=== PATIENT | female | born 1990 | race Caucasian/White ===

== ENCOUNTER 2017-02-26 14:31 | Emergency (ER) | payer BC ==
[2017-02-26 14:59] VITALS: BP 108/65
--- NOTE | 2017-02-26 15:19 | UC ---
Complaint Female HPI - HPI Summary HPI Summary: 26 yo female with dysuria/urgency and frequency x 1 day no f/c no n/v/d no abd or back pain no vag d/c or itch - History Of Current Complaint Chief Complaint: UCGU Stated Complaint: URINARY COMPLAINT Time Seen by Provider: 02/26/17 15:09 Hx Obtained From: Patient Hx Last Menstrual Period: 02/18/17 Onset/Duration: Gradual Onset, Lasting Hours Timing: Intermittent, Lasting Seconds Severity Initially: Mild Severity Currently: None Pain Intensity: 0 - only hurts with urination Pain Scale Used: 0-10 Numeric Character: Burning Aggravating Factor(s): Urination Associated Signs And Symptoms: Positive: Negative Related Hx: Similar Episode/Dx as: - uti - Allergies/Home Medications Allergies/Adverse Reactions: Allergies Allergy/AdvReac Type Severity Reaction Status Date / Time No Known Allergies Allergy Verified 02/26/17 15:00 PMH/Surg Hx/FS Hx/Imm Hx Previously Healthy: Yes - Surgical History Surgical History: Yes Surgery Procedure, Year, and Place: wisdom teeth. . appy - Family History Known Family History: Positive: Hypertension - Social History Alcohol Use: Rare Substance Use Type: None Smoking Status (MU): Never Smoked Tobacco Review of Systems Constitutional: Negative Skin: Negative Eyes: Negative ENT: Negative Respiratory: Negative Cardiovascular: Negative Gastrointestinal: Negative Genitourinary: Dysuria, Frequency, Urgency Motor: Negative Neurovascular: Negative Musculoskeletal: Negative Neurological: Negative Psychological: Negative All Other Systems Reviewed And Are Negative: Yes Physical Exam Triage Information Reviewed: Yes Appearance: Well-Appearing, No Pain Distress, Well-Nourished Vital Signs: Initial Vital Signs Temp 98.6 F 02/26/17 14:56 Pulse 79 02/26/17 14:56 Resp 16 02/26/17 14:56 BP 108/65 02/26/17 14:56 Pulse Ox 100 02/26/17 14:56 Vital Signs Reviewed: Yes Eyes: Positive: Conjunctiva Clear ENT: Positive: Hearing grossly normal. Negative: Pharyngeal erythema, Nasal congestion, Nasal drainage, Trismus, Muffled/hoarse voice Neck: Positive: Supple, Nontender, No Lymphadenopathy Respiratory: Positive: Lungs clear, Normal breath sounds, No respiratory distress, No accessory muscle use Cardiovascular: Positive: RRR, No Murmur Abdomen Description: Positive: Nontender, No Organomegaly, Soft. Negative: CVA Tenderness (R), CVA Tenderness (L) Musculoskeletal: Positive: ROM Intact, No Edema Neurological: Positive: Alert Psychological Exam: Normal Skin Exam: Normal Complaint Female Dx - Differential Dx/Diagnosis Provider Diagnoses: acute cystitis Discharge - Discharge Plan Condition: Stable Disposition: HOME Prescriptions: Cephalexin CAP* [Keflex CAP*] 500 mg PO BID #14 cap Phenazopyridine TAB* [Pyridium TAB*] 100 mg PO TID #6 tab Patient Education Materials: Urinary Tract Infection in Women (ED) Referrals: RASHAAD Almodovar [Primary Care Provider] - 3 Days (if not better) Additional Instructions: urine culture pending recheck for new or worsening symptoms
--- NOTE | 2017-03-02 08:24 | UC ---
Progress - Progress Note Progress Note: + UC, sensitive to the keflex she is on. complete abx and f/u with pcp
== END 2017-02-26 15:20 | disposition home or self-care (01) ==
LOC: UCCORT 14:31
DX: N30.00 Acute cystitis without hematuria (principal); B96.20 Unspecified Escherichia coli [E. coli] as the cause of diseases classified elsewhere
CPT/HCPCS: 81003; 87077; 87086; 87186; 99212; G0463

== ENCOUNTER 2017-04-19 09:31 | Emergency (ER) | payer BC ==
[2017-04-19 09:58] VITALS: BP 100/66
--- NOTE | 2017-04-19 10:09 | UC ---
Throat Pain/Nasal Asher HPI - HPI Summary HPI Summary: SINCE YESTERDAY SORE THROAT CHILLS BODY ACHE. NO FEVER. NO ABDOMINAL PAIN. - History of Current Complaint Chief Complaint: UCGeneralIllness Stated Complaint: THROAT Time Seen by Provider: 04/19/17 09:33 Hx Obtained From: Patient Hx Last Menstrual Period: 04/01/17 Onset/Duration: Gradual Onset, Lasting Days, Still Present Severity: Mild Cough: None Associated Signs & Symptoms: Positive: Dysphagia, Hoarseness - Epiglottits Risk Factors Epiglottis Risk Factors: Negative - Allergies/Home Medications Allergies/Adverse Reactions: Allergies Allergy/AdvReac Type Severity Reaction Status Date / Time No Known Allergies Allergy Verified 04/19/17 09:54 Home Medications: Home Medications NK [No Home Medications Reported] 04/19/17 [History Confirmed 04/19/17] PMH/Surg Hx/FS Hx/Imm Hx Previously Healthy: Yes - Surgical History Surgical History: Yes Surgery Procedure, Year, and Place: wisdom teeth. . appy - Family History Known Family History: Positive: Hypertension Negative: Respiratory Disease - Social History Occupation: Employed Full-time Lives: With Family Alcohol Use: Rare Substance Use Type: None Smoking Status (MU): Never Smoked Tobacco - Immunization History Most Recent Influenza Vaccination: not yet 2017 Review of Systems Constitutional: Chills, Fatigue Skin: Negative Eyes: Negative ENT: Sore Throat Respiratory: Negative Cardiovascular: Negative Gastrointestinal: Negative Genitourinary: Negative Motor: Negative Neurovascular: Negative Musculoskeletal: Myalgia Neurological: Negative Psychological: Negative Is Patient Immunocompromised?: No All Other Systems Reviewed And Are Negative: Yes Physical Exam Triage Information Reviewed: Yes Appearance: No Pain Distress, Well-Nourished, Ill-Appearing - MILDLY Vital Signs: Initial Vital Signs Temp 98 F 04/19/17 09:54 Pulse 63 04/19/17 09:54 Resp 16 04/19/17 09:54 BP 100/66 04/19/17 09:54 Pulse Ox 99 04/19/17 09:54 Vital Signs Reviewed: Yes Eye Exam: Normal ENT: Positive: Hearing grossly normal, Pharynx normal, Pharyngeal erythema, TMs normal Dental Exam: Normal Neck exam: Normal Neck: Positive: Supple, Nontender, No Lymphadenopathy Respiratory Exam: Normal Respiratory: Positive: Chest non-tender, Lungs clear, Normal breath sounds, No respiratory distress, No accessory muscle use Cardiovascular Exam: Normal Cardiovascular: Positive: RRR, No Murmur, Pulses Normal, Brisk Capillary Refill Abdominal Exam: Normal Abdomen Description: Positive: Nontender, No Organomegaly, Soft Musculoskeletal Exam: Normal Neurological Exam: Normal Psychological Exam: Normal Skin Exam: Normal Throat Pain/Nasal Course/Dx - Differential Dx/Diagnosis Differential Diagnosis/HQI/PQRI: Pharyngitis, Sinusitis, Tonsillitis Provider Diagnoses: PHARYNGITIS Discharge - Discharge Plan Condition: Stable Disposition: HOME Patient Education Materials: Pharyngitis (ED) Referrals: RASHAAD Almodovar [Primary Care Provider] -
== END 2017-04-19 10:19 | disposition home or self-care (01) ==
LOC: UCCORT 09:31
DX: J02.9 Acute pharyngitis, unspecified (principal); R53.83 Other fatigue; M79.1 Myalgia
CPT/HCPCS: 87651; 99211; G0463

== ENCOUNTER 2017-05-25 07:02 | Emergency (ER) | payer BC ==
--- NOTE | 2017-05-25 07:24 | UC ---
Throat Pain/Nasal Asher HPI - HPI Summary HPI Summary: Sore throat x 5 days, gradually worsening. Some cough but no congestion. Cough worse at night. Had vomiting this morning. No diarrhea. - History of Current Complaint Chief Complaint: UCRespiratory Stated Complaint: VOMITTING THROAT COMPLAINT COUGH Time Seen by Provider: 05/25/17 07:06 Hx Obtained From: Patient Hx Last Menstrual Period: 05/01/17 ?: No Onset/Duration: Sudden Onset, Lasting Days - 5, Worse Since - today Severity: Moderate Cough: Nonproductive Associated Signs & Symptoms: Positive: Dysphagia, Hoarseness, Nasal Discharge, Vomiting. Negative: Fever, Rash - Allergies/Home Medications Allergies/Adverse Reactions: Allergies Allergy/AdvReac Type Severity Reaction Status Date / Time No Known Allergies Allergy Verified 05/25/17 07:12 Home Medications: Home Medications Naproxen [Naproxen 500 mg] 500 mg PO ONCE PRN 05/25/17 [History Confirmed ] Pseudoephedrine HCL ER TAB* [Sudafed 12 Hour*] 120 mg PO BID PRN 05/25/17 [ History Confirmed 05/25/17] PMH/Surg Hx/FS Hx/Imm Hx Previously Healthy: Yes - Surgical History Surgical History: Yes Surgery Procedure, Year, and Place: wisdom teeth. . appy - Family History Known Family History: Positive: Cardiac Disease, Hypertension, Diabetes Negative: Respiratory Disease - Social History Occupation: Employed Full-time Lives: With Family Alcohol Use: Rare Substance Use Type: None Smoking Status (MU): Never Smoked Tobacco Have You Smoked in the Last Year: No - Immunization History Most Recent Influenza Vaccination: not yet 2017 Review of Systems Constitutional: Fatigue ENT: Sore Throat Respiratory: Cough Gastrointestinal: Vomiting, Nausea Is Patient Immunocompromised?: No All Other Systems Reviewed And Are Negative: Yes Physical Exam Triage Information Reviewed: Yes Appearance: No Pain Distress, Well-Nourished, Ill-Appearing Vital Signs: Initial Vital Signs Temp 97.8 F 05/25/17 07:06 Pulse 76 05/25/17 07:06 BP 107/66 05/25/17 07:06 Pulse Ox 100 05/25/17 07:06 Vital Signs Reviewed: Yes Eyes: Positive: Conjunctiva Clear ENT: Positive: Pharyngeal erythema - posterior pharynx, TMs normal Neck exam: Normal Neck: Positive: No Lymphadenopathy Respiratory: Positive: Lungs clear, Wheezing - expiratory, just with coughing. Cardiovascular Exam: Normal Musculoskeletal Exam: Normal Neurological Exam: Normal Psychological Exam: Normal Skin Exam: Normal Throat Pain/Nasal Course/Dx - Differential Dx/Diagnosis Differential Diagnosis/HQI/PQRI: Mononucleosis, Otitis Media, Pharyngitis, Tonsillitis, URI Provider Diagnoses: Viral URI. Acute bronchospasm Discharge - Discharge Plan Condition: Stable Disposition: HOME Prescriptions: predniSONE TAB* [Deltasone TAB*] 20 mg PO DAILY #18 tab Patient Education Materials: Upper Respiratory Infection (ED), Bronchospasm (ED ), Prednisone (By mouth) Referrals: RASHAAD Almodovar [Primary Care Provider] -
[2017-05-25 07:34] VITALS: BP 107/66
== END 2017-05-25 07:38 | disposition home or self-care (01) ==
LOC: UCCORT 07:02
DX: J06.9 Acute upper respiratory infection, unspecified (principal); J98.01 Acute bronchospasm; J02.9 Acute pharyngitis, unspecified; R11.2 Nausea with vomiting, unspecified
CPT/HCPCS: 87651; 99212; G0463

== ENCOUNTER 2018-06-27 11:56 | Emergency (ER) | payer BC ==
[2018-06-27 12:47] VITALS: BP 117/72
--- NOTE | 2018-06-27 13:13 | UC ---
Abdominal Pain Female HPI - HPI Summary HPI Summary: 28 y/o with multiple symptoms x 2 days including, headaches , nausea, abdominal pain , arms and hands numbness and tinglings and cramping was seen at the Emergency room 2 days ago , had blood work , CT , all wnl saw her pcp yesterday , did more blood work all wnl no fever, no chills, no diarrhea, no urinary sx - History of Current Complaint Chief Complaint: UCGeneralIllness Stated Complaint: NAUSEA, HEADACHE Time Seen by Provider: 06/27/18 12:48 Hx Last Menstrual Period: ~06/13/18 Onset/Duration: Gradual Onset, Lasting Days - 2, Still Present Timing: Constant Severity Initially: Moderate Severity Currently: Moderate Pain Intensity: 7 Location: Diffuse, Discrete At: RUQ Radiates: No Character: Cramping Aggravating Factor(s): Nothing Alleviating Factor(s): Nothing Associated Signs and Symptoms: Positive: Decreased Appetite, Nausea. Negative: Diaphoresis, Fever, Cough, Chest Pain, Dizzy, Back Pain, Constipation, Blood in Stool, Urinary Symptoms, Vaginal Bleeding, Vaginal Discharge, Vomiting, Diarrhea Allergies/Adverse Reactions: Allergies Allergy/AdvReac Type Severity Reaction Status Date / Time No Known Allergies Allergy Verified 06/27/18 12:42 Home Medications: Home Medications [id number] (Nf) [Excedrin Extra Strength 250-250-65 mg (NF)] 2 tab PO SEE INSTRUCTIONS PRN 06/27/18 [History Confirmed 06/27/18] Ibuprofen TAB* [Advil TAB*] 600 mg PO Q6H PRN 06/27/18 [History Confirmed ] Ondansetron TAB* [Zofran 4 MG Tab*] 4 mg PO Q8H PRN 06/27/18 [History Confirmed 06/27/18] PMH/Surg Hx/FS Hx/Imm Hx Previously Healthy: Yes - Surgical History Surgical History: Yes Surgery Procedure, Year, and Place: Appendectomy, ; , - Family History Known Family History: Positive: Cardiac Disease, Hypertension, Diabetes Negative: Respiratory Disease - Social History Alcohol Use: Rare Substance Use Type: None Smoking Status (MU): Never Smoked Tobacco Have You Smoked in the Last Year: No - Immunization History Most Recent Influenza Vaccination: not yet 2017 Review of Systems All Other Systems Reviewed And Are Negative: Yes Constitutional: Positive: Fatigue Skin: Positive: Negative Eyes: Positive: Negative ENT: Positive: Negative Respiratory: Positive: Negative Gastrointestinal: Positive: Abdominal Pain, Nausea Is Patient Immunocompromised?: No Physical Exam Triage Information Reviewed: Yes Appearance: Well-Appearing, No Pain Distress, Well-Nourished Vital Signs: Initial Vital Signs Temp 98.6 F 06/27/18 12:38 Pulse 68 06/27/18 12:38 Resp 16 06/27/18 12:38 BP 117/72 06/27/18 12:38 Pulse Ox 100 06/27/18 12:38 Vital Signs Reviewed: Yes Eye Exam: Normal Eyes: Positive: Conjunctiva Clear ENT: Positive: Normal ENT inspection, Hearing grossly normal, Pharynx normal Neck: Positive: Supple, Nontender, No Lymphadenopathy Respiratory: Positive: Chest non-tender, Lungs clear, Normal breath sounds, No respiratory distress Cardiovascular: Positive: RRR, No Murmur, Pulses Normal Abdomen Description: Positive: Soft, Other: - diffuse abdominal tenderness. Negative: CVA Tenderness (R), CVA Tenderness (L), Distended, Guarding Abd Pain Female Course/Dx - Differential Dx/Diagnosis Provider Diagnosis: Abdominal pain Discharge - Sign-Out/Discharge Documenting (check all that apply): Patient Departure All imaging exams completed and their final reports reviewed: No Studies - Discharge Plan Condition: Stable Disposition: HOME Patient Education Materials: Abdominal Pain (ED) Referrals: Cliff Munoz MD [Primary Care Provider] - 3 Days Additional Instructions: abdominal pain and nausea , had extensive work up by ED and your pcp ? viral illness cont. with rest, increase fluid, cont. with Zofran as needed for nausea follow up with your pcp on Saturday if not better go to ED if getting worse - Billing Disposition and Condition Condition: STABLE Disposition: Home
== END 2018-06-27 13:06 | disposition home or self-care (01) ==
LOC: UCCORT 11:56
DX: R10.84 Generalized abdominal pain (principal)
CPT/HCPCS: 99211; G0463

== ENCOUNTER 2018-11-26 08:40 | Emergency (ER) | payer BC ==
[2018-11-26 08:54] VITALS: BP 123/72
--- NOTE | 2018-11-26 09:36 | UC ---
Complaint Female HPI - HPI Summary HPI Summary: 28-year-old female comes in with a chief complaint of urinary tract infection symptoms. So started yesterday. She is increased frequency she has dysuria she has urgency. Denies any suprapubic pain or flank pain or fevers or chills. Denies any abnormal vaginal discharge. Denies any concern of an STI. Denies being . On November 09 she was treated with Macrobid twice a day for 5 days which improved her UTI symptoms. However the symptoms returned yesterday. There is no urine culture done from the November 09 urinary tract infection. - History Of Current Complaint Chief Complaint: UCGU Stated Complaint: URINARY COMPLAINT Time Seen by Provider: 11/26/18 09:27 Hx Last Menstrual Period: 10/27/18 Pain Intensity: 0 - Allergies/Home Medications Allergies/Adverse Reactions: Allergies Allergy/AdvReac Type Severity Reaction Status Date / Time No Known Allergies Allergy Verified 11/26/18 08:54 Home Medications: Home Medications Phenazopyridine TAB* [Pyridium 100 mg TAB*] 1 tab PO ONCE 11/26/18 [History Confirmed 11/26/18] PMH/Surg Hx/FS Hx/Imm Hx Previously Healthy: Yes - Surgical History Surgical History: Yes Surgery Procedure, Year, and Place: Appendectomy, [place]; , land - Family History Known Family History: Positive: Cardiac Disease, Hypertension, Diabetes Negative: Respiratory Disease - Social History Alcohol Use: Rare Substance Use Type: None Smoking Status (MU): Never Smoked Tobacco Have You Smoked in the Last Year: No - Immunization History Most Recent Influenza Vaccination: not yet 2017 Review of Systems All Other Systems Reviewed And Are Negative: Yes Constitutional: Positive: Negative Skin: Positive: Negative Eyes: Positive: Negative ENT: Positive: Negative Respiratory: Positive: Negative Cardiovascular: Positive: Negative Gastrointestinal: Positive: Negative Genitourinary: Positive: Dysuria, Frequency, Urgency, Vaginal/Penile Discharge Motor: Positive: Negative Neurovascular: Positive: Negative Musculoskeletal: Positive: Negative Neurological: Positive: Negative Psychological: Positive: Negative Is Patient Immunocompromised?: No Physical Exam Triage Information Reviewed: Yes Appearance: Well-Appearing, No Pain Distress, Well-Nourished Vital Signs: Initial Vital Signs Temp 97.6 F 11/26/18 08:49 Pulse 81 11/26/18 08:49 Resp 16 11/26/18 08:49 BP 123/72 11/26/18 08:49 Pulse Ox 99 11/26/18 08:49 Vital Signs Reviewed: Yes Eye Exam: Normal Eyes: Positive: Conjunctiva Clear Neck: Positive: Supple Cardiovascular: Positive: RRR Abdomen Description: Negative: CVA Tenderness (R), CVA Tenderness (L) Musculoskeletal Exam: Normal Musculoskeletal: Positive: Strength Intact, ROM Intact Neurological Exam: Normal Neurological: Positive: Alert, Muscle Tone Normal Psychological Exam: Normal Psychological: Positive: Age Appropriate Behavior Skin Exam: Normal Complaint Female Dx - Differential Dx/Diagnosis Provider Diagnosis: UTI (urinary tract infection) Discharge - Sign-Out/Discharge Documenting (check all that apply): Patient Departure All imaging exams completed and their final reports reviewed: No Studies - Discharge Plan Condition: Stable Disposition: HOME Prescriptions: Cephalexin CAP* [Keflex CAP*] 500 mg PO TID #21 cap Patient Education Materials: Urinary Tract Infection in Women (ED) Referrals: Cliff Munoz MD [Primary Care Provider] - Additional Instructions: FOLLOW UP WITH YOUR DOCTOR IF NOT COMPLETELY IMPROVED. GET RECHECKED SOONER IF YOUR CONDITION WORSENS OR ANY QUESTIONS OR CONCERNS. - Billing Disposition and Condition Condition: STABLE Disposition: Home
--- NOTE | 2018-11-28 07:02 | UC ---
- Progress Note Progress Note: please notify patient NO UTI STOP antibiotic RECHECK if still symptomatic Course/Dx - Diagnoses Provider Diagnoses: UTI (urinary tract infection) Discharge - Sign-Out/Discharge Documenting (check all that apply): Post-Discharge Follow Up All imaging exams completed and their final reports reviewed: No Studies - Discharge Plan Condition: Stable Disposition: HOME Prescriptions: Cephalexin CAP* [Keflex CAP*] 500 mg PO TID #21 cap Patient Education Materials: Urinary Tract Infection in Women (ED) Referrals: Cliff Munoz MD [Primary Care Provider] - Additional Instructions: FOLLOW UP WITH YOUR DOCTOR IF NOT COMPLETELY IMPROVED. GET RECHECKED SOONER IF YOUR CONDITION WORSENS OR ANY QUESTIONS OR CONCERNS. - Billing Disposition and Condition Condition: STABLE Disposition: Home
== END 2018-11-26 09:41 | disposition home or self-care (01) ==
LOC: UCCORT 08:40
DX: N39.0 Urinary tract infection, site not specified (principal)
CPT/HCPCS: 87086; 99212; G0463

== ENCOUNTER 2019-06-10 16:41 | Emergency (ER) | payer BC ==
--- OUTSIDE RECORDS SUMMARY | 2019-06-10 17:04 | XMS REPORT | Continuity of Care Document ---
:1990 External Reference #:[id number] Author Name Roosevelt Bailey MD Address [address], [address] [place] [address] Care Team Providers Name Role Phone Rowan Ramirez M.D. - Family Care Team Information Transition Program Manager [phone] Medicine Problems Active Problems Provider Date Abdominal pain Roosevelt Bailey MD Onset: 04/17/2019 Social History Type Date Description Comments Sex Unknown Tobacco Use Start: Unknown Never Smoked Cigarettes Smokeless Tobacco Never Used Smokeless Tobacco ETOH Use Rarely consumes alcohol Tobacco Use Start: Unknown Patient denies history of smoking Recreational Drug Use Denies Drug Use Smoking Status Reviewed: 04/17/19 Patient denies history of smoking Allergies, Adverse Reactions, Alerts Description No Known Drug Allergies Medications Active Medications SIG Qnty Indications Ordering Provider Date Omeprazole 1 by mouth 30caps K27.9 Jorge Craft 03/07/2017 20mg Capsules every day MD DR Bagley Description No Information Available Vital Signs Date Vital Result Comment 04/17/2019 3:02pm BP Systolic Sitting Left Arm 100 mmHg BP Diastolic Sitting Left Arm 65 mmHg Body Temperature 98.2 F Heart Rate 69 /min Respiratory Rate 16 /min Height 66 inches 5'6" Weight 139.00 lb BMI (Body Mass Index) 22.4 kg/m2 BSA (Body Surface Area) 1.71 m2 [place] body weight in kilograms 59 kg O2 % BldC Oximetry 100 % 03/07/2017 11:25am BP Systolic Sitting Left Arm 118 mmHg BP Diastolic Sitting Left Arm 66 mmHg Heart Rate 60 /min Respiratory Rate 16 /min Height 66 inches 5'6" Weight 135.00 lb BMI (Body Mass Index) 21.8 kg/m2 BSA (Body Surface Area) 1.69 m2 [place] body weight in kilograms 59 kg Results Description No Information Available Procedures Description No Information Available Medical Devices Description No Information Available Encounters Description No Information Available Assessments Date Code Description Provider 04/17/2019 R10.10 Upper abdominal pain, unspecified Roosevelt Bailey MD Plan of Treatment 04/17/2019 - Roosevelt Bailey, MDR10.10 Upper abdominal pain, unspecifiedNew Xrays: MRI, Abdomen W/O Fol By Contrast, Ordered: 04/17/19Comments:Continue with PPI daily, 30 minutes before breakfastAntireflux lifestyle modifications discussed MRI/MRCP of abdomen to better evaluate biliary and pancreatic anatomyFollow up: Follow up in 3 months Functional Status Description No Information Available Mental Status Description No Information Available Referrals Description No Information Available
--- OUTSIDE RECORDS SUMMARY | 2019-06-10 17:04 | XMS REPORT | Continuity of Care Document ---
:1990 External Reference #:[id number] Author Name Roosevelt Bailey MD Address [address], [address] [place] [address] Care Team Providers Name Role Phone Rowan Ramirez M.D. 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 [phone] Medicine Problems Active Problems Provider Date Abdominal pain Roosevelt Bailey MD Onset: 04/17/2019 Social History Type Date Description Comments Sex Unknown Tobacco Use Start: Unknown Never Smoked Cigarettes Smokeless Tobacco Never Used Smokeless Tobacco ETOH Use Rarely consumes alcohol Tobacco Use Start: Unknown Patient denies history of smoking Recreational Drug Use Denies Drug Use Smoking Status Reviewed: 06/01/19 Patient denies history of smoking Allergies, Adverse Reactions, Alerts Description No Known Drug Allergies Medications Active Medications SIG Qnty Indications Ordering Date Provider Dicyclomine HCL take two tablets 30caps R10.10 Roosevelt Bailey, 06/01/2019 when experiencing MD 10mg Capsules abdominal pain; twice a day as needed Omeprazole take daily 30 60caps Roosevelt Bailey, 04/30/2019 20mg minutes before MD Capsules DR breakfast Immunizations Description No Information Available Vital Signs Date Vital Result Comment 06/01/2019 10:15am BP Systolic Sitting Left Arm 122 mmHg BP Diastolic Sitting Left Arm 79 mmHg Body Temperature 96.1 F Heart Rate 61 /min Respiratory Rate 20 /min Height 66 inches 5'6" Weight 142.38 lb BMI (Body Mass Index) 23.0 kg/m2 BSA (Body Surface Area) 1.73 m2 [place] body weight in kilograms 59 kg O2 % BldC Oximetry 100 % Ra Pain Level 5 upper RT abdomen 04/17/2019 3:02pm BP Systolic Sitting Left Arm 100 mmHg BP Diastolic Sitting Left Arm 65 mmHg Body Temperature 98.2 F Heart Rate 69 /min Respiratory Rate 16 /min Height 66 inches 5'6" Weight 139.00 lb BMI (Body Mass Index) 22.4 kg/m2 BSA (Body Surface Area) 1.71 m2 [place] body weight in kilograms 59 kg O2 % BldC Oximetry 100 % Results Description No Information Available Procedures Description No Information Available Medical Devices Description No Information Available Encounters Type Date Location Provider Dx Diagnosis Office Visit 04/17/2019 GI Roosevelt Bailey MD R10.10 Upper abdominal pain, 3:00p unspecified Assessments Date Code Description Provider 06/01/2019 R10.10 Upper abdominal pain, unspecified Roosevelt Bailey MD 04/17/2019 R10.10 Upper abdominal pain, unspecified Roosevelt Bailey MD Plan of Treatment 06/01/2019 - Roosevelt Bailey, MDR10.10 Upper abdominal pain, unspecifiedNew Medication:Dicyclomine HCL 10 mg - take two tablets when experiencing abdominal pain; twice a day as neededNew Orders:Endoscopy, Ordered: 06/01/19Comments: Schedule patient for EGDI have explained the risks, benefits, and alternatives of the procedures. Wehave discussed the potential risks including, but not limited to perforation, bleeding, infection, cardiopulmonary complications, aspiration, or unforeseen complicationsDicyclomine 20 mg 1-2 times a day as needed for abdominal pain Recommended holding off PPI for now Functional Status Description No Information Available Mental Status Description No Information Available Referrals Description No Information Available
[2019-06-10 17:10] VITALS: BP 112/80
--- NOTE | 2019-06-10 17:41 | UC ---
Throat Pain/Nasal Asher HPI - HPI Summary HPI Summary: Patient is a 28yo female presenting with sore throat x1 week and dry cough x2 days that is "much worse at night." Patient denies other URI symptoms. Denies PND. Denies SOB but thinks she may have been wheezing last night. Denies fever and chills. Denies n/v. Denies decreased appetite and fluid intake. States she has been taking claritin D and ibuprofen without relief of sore throat. Denies h /o asthma. - History of Current Complaint Chief Complaint: UCGeneralIllness Stated Complaint: SORE THROAT, COUGH Hx Obtained From: Patient Hx Last Menstrual Period: 05/18/19 Onset/Duration: Gradual Onset, Lasting Days Severity: Severe Pain Intensity: 9 Pain Scale Used: 0-10 Numeric Cough: Nonproductive - Allergies/Home Medications Allergies/Adverse Reactions: Allergies Allergy/AdvReac Type Severity Reaction Status Date / Time No Known Allergies Allergy Verified 06/10/19 17:10 PMH/Surg Hx/FS Hx/Imm Hx - Surgical History Surgical History: Yes Surgery Procedure, Year, and Place: Appendectomy, 2014, [place]; , [place] - Family History Known Family History: Positive: Cardiac Disease, Hypertension, Diabetes Negative: Respiratory Disease - Social History Alcohol Use: Rare Substance Use Type: None Smoking Status (MU): Never Smoked Tobacco Have You Smoked in the Last Year: No - Immunization History Most Recent Influenza Vaccination: not yet 2017 Review of Systems All Other Systems Reviewed And Are Negative: Yes Constitutional: Positive: Negative ENT: Positive: Sore Throat. Negative: Ear Ache, Nasal Discharge, Sinus Congestion, Sinus Pain/Tenderness Respiratory: Positive: Cough - dry, Other - wheezing last night. Negative: Shortness Of Breath Cardiovascular: Positive: Negative Gastrointestinal: Positive: Negative Musculoskeletal: Positive: Negative Neurological: Positive: Negative Physical Exam Triage Information Reviewed: Yes Appearance: Well-Appearing, No Pain Distress, Well-Nourished Vital Signs: Initial Vital Signs Temp 98 F 06/10/19 17:05 Pulse 71 06/10/19 17:05 Resp 16 06/10/19 17:05 BP 112/80 06/10/19 17:05 Pulse Ox 100 06/10/19 17:05 Lab Results 06/10/19 Range/Units 17:18 Group A Strep Rapid Negative (Negative) Vital Signs Reviewed: Yes Eyes: Positive: Conjunctiva Clear ENT: Positive: Hearing grossly normal, Pharyngeal erythema, TMs normal, Uvula midline. Negative: Nasal congestion, Nasal drainage, Tonsillar swelling, Tonsillar exudate, Trismus, Muffled voice, Hoarse voice, Sinus tenderness Neck exam: Normal Neck: Positive: Supple, Nontender, No Lymphadenopathy Respiratory Exam: Normal Respiratory: Positive: Lungs clear, Normal breath sounds, No respiratory distress. Negative: Crackles, Rhonchi, Stridor, Wheezing Cardiovascular Exam: Normal Cardiovascular: Positive: RRR. Negative: Tachycardia Neurological: Positive: Alert Psychological: Positive: Age Appropriate Behavior Skin Exam: Normal Throat Pain/Nasal Course/Dx - Course Course Of Treatment: Discussed negative rapid strep with patient. Discussed viral illness and instructed to continue his symptomatic treatment including use of Tessalon Perles at night to help relieve coughing. Instructed to follow up with PCP if symptoms persist. Patient voiced understanding and agreed with the treatment plan. - Differential Dx/Diagnosis Differential Diagnosis/HQI/PQRI: URI Provider Diagnosis: Pharyngitis, Acute bronchitis Discharge ED - Sign-Out/Discharge Documenting (check all that apply): Patient Departure All imaging exams completed and their final reports reviewed: No Studies - Discharge Plan Condition: Stable Disposition: HOME Prescriptions: Benzonatate CAP* [Tessalon 100 MG CAP*] 100 mg PO BEDTIME PRN #10 cap PRN Reason: Cough Patient Education Materials: Pharyngitis (ED), Acute Bronchitis (ED) Referrals: Cliff Munoz MD [Primary Care Provider] - If Needed Additional Instructions: As discussed, your rapid strep test was negative today. Your symptoms are likely caused by a virus. Viruses do not respond to antibiotic treatment and should resolve on their own with time. Use tessalon perles once daily before bedtime to help alleviate coughing. Throat lozenges, throat sprays, and tea with honey may help relieve sore throat. You may continue to take ibuprofen as directed for pain relief. Get plenty of rest and fluids. Follow up with your primary care doctor if your symptoms worsen or do not resolve within 7-10 days. - Billing Disposition and Condition Condition: STABLE Disposition: Home
== END 2019-06-10 17:42 | disposition home or self-care (01) ==
LOC: UCCORT 16:41
DX: J02.9 Acute pharyngitis, unspecified (principal); J20.9 Acute bronchitis, unspecified
CPT/HCPCS: 87651; 99212; G0463

== ENCOUNTER 2019-08-01 16:13 | Emergency (ER) | payer BC ==
--- OUTSIDE RECORDS SUMMARY | 2019-08-01 16:36 | XMS REPORT | Continuity of Care Document ---
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 [phone] Medicine Problems Active Problems Provider Date Abdominal [...] Height 66 inches 5'6" Weight 142.38 lb Pain Level 5 upper RT abdomen BMI (Body Mass Index) 23.0 kg/m2 BSA (Body Surface Area) 1.73 m2 [place] body weight in kilograms 59 kg O2 % BldC Oximetry 100 % Ra 04/17/2019 3:02pm BP Systolic Sitting Left Arm 100 mmHg BP Diastolic Sitting Left Arm 65 mmHg Body Temperature 98.2 F Heart Rate 69 /min Respiratory Rate 16 /min Height 66 inches 5'6" Weight 139.00 lb BMI (Body Mass Index) 22.4 kg/m2 BSA (Body Surface Area) 1.71 m2 [place] body weight in kilograms 59 kg O2 % BldC Oximetry 100 % Results Description No Information Available Procedures Description No Information Available Medical Devices Description No Information Available Encounters Type Date Location Provider Dx Diagnosis Office Visit 06/01/2019 Roosevelt Jang MD R10.10 Upper abdominal pain, 10:10a unspecified Office Visit 04/17/2019 Roosevelt Jang MD R10.10 Upper abdominal pain, 3:00p unspecified Assessments Date Code Description Provider 07/13/2019 R10.10 Upper abdominal pain, unspecified [place] 06/01/2019 R10.10 Upper abdominal pain, unspecified Roosevelt Bailey MD 04/17/2019 R10.10 Upper abdominal pain, unspecified Roosevelt Bailey MD Plan of Treatment Future Appointment(s):07/22/2019 10:00 am - Roosevelt Bailey MD at Operating Room08/06/2019 8:30 am - Roosevelt Bailey MD at GI07/13/2019 - [place] , PAR10.10 Upper abdominal pain, unspecifiedComments:Proceed with EGD as scheduled Functional Status Description No Information Available Mental Status Description No Information Available Referrals Description No Information Available
[2019-08-01 16:40] VITALS: BP 113/83
--- NOTE | 2019-08-01 17:03 | UC ---
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 feels liek strep. has felt warm but didnt check temos. + swollen glands. no cough/congestion/runny nose. -no rash -no n/v/d. -denies chance of - History of Current Complaint Chief Complaint: UCGeneralIllness Stated Complaint: SORE THROAT Time Seen by Provider: 08/01/19 16:40 Hx Last Menstrual Period: 07/15/19 Pain Intensity: 8 - Allergies/Home Medications Allergies/Adverse Reactions: Allergies Allergy/AdvReac Type Severity Reaction Status Date / Time No Known Allergies Allergy Verified 08/01/19 16:40 PMH/Surg Hx/FS Hx/Imm Hx Previously Healthy: Yes - Surgical History Surgical History: Yes Surgery Procedure, Year, and Place: [place], [place] - Family History Known Family History: Positive: Cardiac Disease, Hypertension, Diabetes Negative: Respiratory Disease - Social History Alcohol Use: Rare Substance Use Type: None Smoking Status (MU): Never Smoked Tobacco Have You Smoked in the Last Year: No - Immunization History Most Recent Influenza Vaccination: not yet 2017 Review of Systems All Other Systems Reviewed And Are Negative: Yes Constitutional: Positive: Fever - tactile Skin: Negative: Rash Eyes: Positive: Negative ENT: Positive: Sore Throat. Negative: Ear Ache, Nasal Discharge Respiratory: Positive: Negative. Negative: Shortness Of Breath, Cough Cardiovascular: Positive: Negative. Negative: Palpitations, Chest Pain Gastrointestinal: Positive: Negative. Negative: Abdominal Pain, Vomiting, Diarrhea, Nausea Genitourinary: Positive: Negative. Negative: Dysuria Motor: Positive: Negative Neurovascular: Positive: Negative Musculoskeletal: Positive: Negative Neurological: Positive: Negative Psychological: Positive: Negative Is Patient Immunocompromised?: No Physical Exam Triage Information Reviewed: Yes Appearance: Well-Appearing, No Pain Distress, Well-Nourished - good historian. very pleasant Vital Signs: Initial Vital Signs Temp 98.8 F 08/01/19 16:36 Pulse 79 08/01/19 16:36 Resp 20 08/01/19 16:36 BP 113/83 08/01/19 16:36 Pulse Ox 100 08/01/19 16:36 Vital Signs Reviewed: Yes Eye Exam: Normal ENT Exam: Normal ENT: Positive: Pharyngeal erythema, TMs normal, Sinus tenderness, Uvula midline. Negative: TM bulging, TM dull, TM red, Tonsillar swelling, Tonsillar exudate, Hoarse voice Neck exam: Normal Neck: Positive: Supple, Nontender, No Lymphadenopathy Respiratory Exam: Normal Respiratory: Positive: Lungs clear, Normal breath sounds, No respiratory distress, No accessory muscle use. Negative: Crackles, Rhonchi, Stridor, Wheezing Cardiovascular Exam: Normal Cardiovascular: Positive: RRR Abdominal Exam: Normal Abdomen Description: Positive: Nontender, Soft Musculoskeletal Exam: Normal Neurological Exam: Normal Psychological Exam: Normal Skin Exam: Normal Throat Pain/Nasal Course/Dx - Course Course Of Treatment: Rapid strep neg. check TC bc symptoms feel like strep, no PND/congestion and son tested positive -will treat on clincial picture and dc abx if TC is negative. she knows to call as she may not geta call if neg. -she prefers to manage this way. v/u. reliable - Differential Dx/Diagnosis Differential Diagnosis/HQI/PQRI: Pharyngitis, Tonsillitis, URI Provider Diagnosis: Pharyngitis Discharge ED - Sign-Out/Discharge Documenting (check all that apply): Patient Departure All imaging exams completed and their final reports reviewed: No Studies - Discharge Plan Condition: Stable Disposition: HOME Prescriptions: Amoxicillin PO (*) [Amoxicillin 875 MG (*)] 875 mg PO BID #20 tab Patient Education Materials: Pharyngitis (ED) Referrals: Cliff Munoz MD [Primary Care Provider] - Additional Instructions: It is recommended that you take a probiotic daily while you are on antibiotics. A few common brands that you can buy over the counter are colon health, align and florastor. These can help prevent a colon infection called c diff that can be associated with antibiotic use. -the rapid strep test is negative. I have ordered a throat culture. We talked about stopping the antibiotic if that culture comes back negative. You can call us 08/04/19 if you haven't heard from us. - Billing Disposition and Condition Condition: STABLE Disposition: Home
--- NOTE | 2019-08-05 07:24 | UC ---
- Progress Note Progress Note: Throat swab came back as normal cailin. Advise that she can stop the use of amoxicillin. Course/Dx - Diagnoses Provider Diagnoses: Pharyngitis Discharge ED - Sign-Out/Discharge Documenting (check all that apply): Post-Discharge Follow Up All imaging exams completed and their final reports reviewed: No Studies - Discharge Plan Condition: Stable Disposition: HOME Prescriptions: Amoxicillin PO (*) [Amoxicillin 875 MG (*)] 875 mg PO BID #20 tab Patient Education Materials: Pharyngitis (ED) Referrals: Cliff Munoz MD [Primary Care Provider] - Additional Instructions: It is recommended that you take a probiotic daily while you are on antibiotics. A few common brands that you can buy over the counter are colon health, align and florastor. These can help prevent a colon infection called c diff that can be associated with antibiotic use. -the rapid strep test is negative. I have ordered a throat culture. We talked about stopping the antibiotic if that culture comes back negative. You can call us 08/04/19 if you haven't heard from us. - Billing Disposition and Condition Condition: STABLE Disposition: Home
== END 2019-08-01 17:41 | disposition home or self-care (01) ==
LOC: UCCORT 16:13
DX: J02.9 Acute pharyngitis, unspecified (principal)
CPT/HCPCS: 87070; 87651; 99212; G0463